=== PATIENT | male | born 1995 | race American Indian/Alaskan Native ===

== ENCOUNTER 2019-03-16 05:20 | Emergency (ER) | payer SELFPAY ==
[2019-03-16] MEDS ORDERED: NARCAN 2 MG/2 ML IV ONE (05:46)
[2019-03-16 05:54] LABS: Basophils # (Auto) 0.1 K/mm3 (0.0-0.1); Basophils % (Auto) 1.3 % (0.0-1.8); Eosinophils % (Auto) 0.5 % (0.0-4.3); Hemoglobin 13.8 gm/dl (11.8-15.2); Lymphocytes # (Auto) 2.5 K/mm3 (1.2-5.4); Lymphocytes % (Auto) 41.3 % (13.4-35.0); Mean Corpuscular HGB Conc 34 % (32-34); Mean Corpuscular Volume 84 fl (84-94); Monocytes # (Auto) 0.3 K/mm3 (0.0-0.8); Monocytes % (Auto) 5.4 % (0.0-7.3); Platelet Count 200 K/mm3 (140-440); Red Blood Count 4.76 M/mm3 (3.65-5.03)
--- NOTE | 2019-03-16 06:01 | XRay Report ---
CHEST 1 VIEW INDICATION: Chest Pain. COMPARISON: None. FINDINGS: Support devices: None. Heart: Within normal limits. Lungs/Pleura: No acute air space or interstitial disease. Additional findings: None. IMPRESSION: No acute abnormality. Signer Name: Jay Cleaning MD Signed: 03/16/2019 5:57 AM Workstation Name: [id number]
[2019-03-16 06:18] LABS: Alanine Aminotransferase 39 units/L (7-56); Albumin 4.1 g/dL (3.9-5); BUN/Creatinine Ratio 9; Blood Urea Nitrogen 10 mg/dL (9-20); Calcium 9.3 mg/dL (8.4-10.2); Hemolysis Index 3
--- NOTE | 2019-03-16 06:54 | Emergency Department Report ---
ED General Adult HPI - General Chief complaint: Chest Pain Stated complaint: DRUG ABUSE Time Seen by Provider: 03/16/19 05:58 Source: EMS (EMS documentation not available at the time of chart dictation), RN notes reviewed Mode of arrival: Stretcher Limitations: Altered Mental Status, Other (the patient is intoxicated.) - History of Present Illness Initial comments: This is a 23-year-old gentleman. This patient is not known to this provider previously. As per documentation, reportedly has a past medical history of anxiety, and atrial fibrillation. The patient is currently sleepy and intoxicated. He does not answer open-ended or close and it questions. History at this point in time is obtained from triage nursing documentation. EMS documentation is not available at this time. Reportedly, the patient was found lying in a parking lot, and reported chest pain after starting cocaine, consuming alcohol, and consuming hydrocodone tablets. There is no documentation of suicidality, and reportedly, the patient stated that he wants to get high. We do not know who contacted emergency medical services. The patient is sleepy, arousable, but not able to answer questions. There is no additional history at this time. -: unknown Radiation: other Quality: other Consistency: other Improves with: other Worsens with: other Associated Symptoms: other - Related Data Previous Rx's Medication Instructions Recorded Last Taken Type Naloxone HCl [Narcan Nasal [place]] 4 mg NS Q1HR PRN #1 spray 03/16/19 Unknown Rx Allergies Allergy/AdvReac Type Severity Reaction Status Date / Time No Known Allergies Allergy Unverified 03/16/19 05:36 ED Review of Systems ROS: Stated complaint: DRUG ABUSE Other details as noted in HPI Comment: Unobtainable due to pts medical conditions ED Past Medical Hx - Past Medical History Previous Medical History?: Yes Hx Psychiatric Treatment: Yes (anxiety) Additional medical history: A-fib - Social History Smoking Status: Current Every Day Smoker Substance Use Type: None, Cocaine - Medications Home Medications: Home Medications Medication Instructions Recorded Confirmed Last Taken Type Naloxone HCl [Narcan Nasal [place]] 4 mg NS Q1HR PRN #1 spray 03/16/19 Unknown Rx ED Physical Exam - General Limitations: Altered Mental Status General appearance: in no apparent distress, appears intoxicated - Head Head exam: Present: atraumatic, normocephalic - Eye Eye exam: Present: normal appearance, PERRL, EOMI - ENT ENT exam: Present: normal exam, normal orophraynx, mucous membranes moist, normal external ear exam - Neck Neck exam: Present: normal inspection, full ROM. Absent: tenderness, meningismus - Respiratory Respiratory exam: Present: normal lung sounds bilaterally. Absent: respiratory distress - Cardiovascular Cardiovascular Exam: Present: regular rate, normal rhythm, normal heart sounds. Absent: bradycardia, tachycardia, irregular rhythm, systolic murmur, diastolic murmur, rubs, gallop - GI/Abdominal GI/Abdominal exam: Present: soft. Absent: distended, tenderness, guarding, rebound, rigid, pulsatile mass - Rectal Rectal exam: Present: deferred - Extremities Exam Extremities exam: Present: normal inspection, full ROM (passive range of motion is intact for the bilateral upper and lower extremities. Patient noted to be moving 4 extremities spontaneously without difficulty.), other (2+ pulses noted in the bilateral upper, lower extremities. There is no long bony tenderness. The pelvis is stable. Muscular compartments are soft.). Absent: pedal edema, joint swelling, calf tenderness - Back Exam Back exam: Present: normal inspection. Absent: tenderness, CVA tenderness (L), paraspinal tenderness, vertebral tenderness - Neurological Exam Neurological exam: Present: altered (patient appears to be intoxicated), other (there is no facial droop. Moving 4 extremities spontaneously. Detailed neurologic examination not possible secondary to intoxication and altered mental status) - Psychiatric Psychiatric exam: Absent: agitated - Skin Skin exam: Present: warm, dry, intact, normal color. Absent: rash ED Course Vital Signs 03/16/19 03/16/19 03/16/19 05:33 05:44 06:35 Temperature 97.7 F Pulse Rate 82 47 L Respiratory 16 16 17 Rate Blood Pressure 124/67 109/59 O2 Sat by Pulse 99 97 Oximetry 03/16/19 03/16/19 03/16/19 06:46 07:11 07:15 Temperature Pulse Rate 69 71 70 Respiratory 17 20 17 Rate Blood Pressure 109/59 O2 Sat by Pulse 96 96 96 Oximetry 03/16/19 03/16/19 03/16/19 07:31 08:00 08:31 Temperature Pulse Rate 75 57 L Respiratory 17 18 Rate Blood Pressure 97/45 109/57 110/66 O2 Sat by Pulse 96 97 97 Oximetry - Reevaluation(s) Reevaluation #1: 03/16/19 06:53 Differential diagnosis, including but not limited to: Polysubstance abuse, int oxication, intracranial injury, cervical spine injury Assessment and plan: 23-year-old male, with reported recreational polysubstance ingestion. The patient is afebrile with reassuring vital signs. His physical exam is unremarkable at this time, with the exception of intoxicated mental status. He will be placed on an ER hold. CT scan of the brain and cervical spine have been ordered. Appropriate screening laboratory studies ordered. We will observe the patient on a desk monitor, and observe for clinical sobriety. Once he is sober, we will obtain additional history. Reevaluation #2: 03/16/19 09:48 CT scan of the brain, cervical spine negative for acute somatic disease. Patient moving his neck back and forth without difficulty, and has no midline cervical spine tenderness. Sensation is intact to light touch and 4, cheese. Therefore, do not have high suspicion for cervical spine injury, and I think that an occult cervical spine injury is very unlikely at this point in time. The patient is now speaking on the phone, trying to get in touch with his mother to arrange pickup. He does not endorse any complaints to myself or to nursing staff. ED Medical Decision Making - Lab Data Result diagrams: 03/16/19 05:44 03/16/19 05:44 Vital Signs 03/16/19 03/16/19 05:33 05:44 Temperature 97.7 F Pulse Rate 82 Respiratory 16 16 Rate Blood Pressure 124/67 O2 Sat by Pulse 99 Oximetry Lab Results 03/16/19 03/16/19 03/16/19 Range/Units 05:44 05:44 05:44 WBC 6.0 (4.5-11.0) K/mm3 RBC 4.76 (3.65-5.03) M/mm3 Hgb 13.8 (11.8-15.2) gm/dl Hct 40.0 (35.5-45.6) % MCV 84 (84-94) fl MCH 29 (28-32) pg MCHC 34 (32-34) % RDW 14.0 (13.2-15.2) % Plt Count 200 (140-440) K/mm3 Lymph % (Auto) 41.3 H (13.4-35.0) % [place] % (Auto) 5.4 (0.0-7.3) % Eos % (Auto) 0.5 (0.0-4.3) % Baso % (Auto) 1.3 (0.0-1.8) % Lymph # 2.5 (1.2-5.4) K/mm3 [place] # 0.3 (0.0-0.8) K/mm3 Eos # 0.0 (0.0-0.4) K/mm3 Baso # 0.1 (0.0-0.1) K/mm3 Seg Neutrophils % 51.5 (40.0-70.0) % Seg Neutrophils # 3.1 (1.8-7.7) K/mm3 Sodium 142 (137-145) mmol/L Potassium 3.7 (3.6-5.0) mmol/L Chloride 102.7 (98-107) mmol/L Carbon Dioxide 26 (22-30) mmol/L Anion Gap 17 mmol/L BUN 10 (9-20) mg/dL Creatinine 1.1 (0.8-1.5) mg/dL Estimated GFR > 60 ml/min BUN/Creatinine Ratio 9 % Glucose 87 (75-100) mg/dL Calcium 9.3 (8.4-10.2) mg/dL Total Bilirubin 0.40 (0.1-1.2) mg/dL AST 29 (5-40) units/L ALT 39 (7-56) units/L Alkaline Phosphatase 61 (35-129) units/L Troponin T < 0.010 (0.00-0.029) ng/mL Total Protein 6.9 (6.3-8.2) g/dL Albumin 4.1 (3.9-5) g/dL Albumin/Globulin Ratio 1.5 % Plasma/Serum Alcohol 0.12 H (0-0.07) % - EKG Data -: EKG Interpreted by Fl EKG shows normal: sinus rhythm Rate: normal - EKG Data When compared to previous EKG there are: previous EKG unavailable 03/16/19 06:54 This is a normal sinus rhythm, normal axis, QTC 435 ms, high left ventricular voltage, there is motion artifact, there is no prior EKG available for comparison, the EKG is not consistent with ST elevation myocardial infarction. - Radiology Data Radiology results: pending, report reviewed, image reviewed Print Report Referring Physician: FAVIOLA RESENDEZ Patient Name: HENRIQUE DIANA Date of : 1995 Sex: Male Report Date: 2019-03-16 Report Status: Finalized Findings [facility] [address] [place] [address] XRay Report Signed Patient: HENRIQUE DIANA MR#: [id number] : 1995 Acct:[id number] Age/Sex: 23 / M ADM Date: 03/16/19 Loc: ED Attending Dr: Ordering Physician: FAVIOLA RESENDEZ MD Date of Service: 03/16/19 Procedure(s): XR chest 1V ap Accession Number(s): [id number] cc: FAVIOLA RESENDEZ MD Fluoro Time In Minutes: CHEST 1 VIEW INDICATION: Chest Pain. COMPARISON: None. FINDINGS: Support devices: None. Heart: Within normal limits. Lungs/Pleura: No acute air space or interstitial disease. Additional findings: None. IMPRESSION: No acute abnormality. Signer Name: Jay Cleaning MD Signed: 03/16/2019 5:57 AM Workstation Name: [id number] Transcribed By: ES Dictated By: Jay Cleaning MD Electronically Authenticated By: Jay Cleaning MD Signed Date/Time: 03/16/19 0557 Critical care attestation.: If time is entered above; I have spent that time in minutes in the direct care of this critically ill patient, excluding procedure time. ED Disposition Clinical Impression: Alcohol intoxication, Polysubstance abuse Disposition: DC-01 TO HOME OR SELFCARE Is pt being admited?: No Does the pt Need Aspirin: No Condition: Good Instructions: Polysubstance Abuse (ED) Additional Instructions: I recommend the patient discontinue or limit alcohol consumption in the future. Recommend the patient does not combine alcohol with prescription drugs or recreational drugs. Combination of alcohol with multiple drugs may cause respir atory depression, , disability, paralysis, loss of quality of life. Recommend patient not drive or operate motor vehicles until cleared to do so by a primary care doctor. Recommend follow-up with the primary care doctor within the next week. Return to the emergency room right away projectile vomiting, change in mental status, confusion, inability to tolerate liquid feeds, new, worsening or different symptoms not present on the initial emergency room evaluation. [place] Narcan medication as needed/directed for opioid overdose, including change in mental status, respiratory depression Referrals: PRIMARY CARE, [Primary Care Provider] - 3-5 Days [facility] [Provider Group] - 3-[address] [facility] [Provider Group] - 3-5 Days
[2019-03-16] MEDS ORDERED: ATIVAN IM PRN (06:57)
[2019-03-16] MEDS ORDERED: HALDOL IM PRN (06:57)
--- NOTE | 2019-03-16 09:03 | Cat Scan Report ---
CT head without contrast INDICATION : intox found down ams. TECHNIQUE: Axial imaging performed from the skull apex through the skull base without the use of con trast. All CT scans at this location are performed using CT dose reduction for ALARA by means of aut omated exposure control. COMPARISON: None FINDINGS: Parenchyma: No acute intracranial hemorrhage or parenchymal abnormality. Ventricles: Ventricles are normal in size and appear symmetric. Soft tissues: Soft tissues including the orbits appear normal. Bones: No acute osseous abnormality. Sinuses: Sinuses and mastoid air cells are clear. IMPRESSION: No acute abnormality. Signer Name: Mika Milian MD Signed: 03/16/2019 8:59 AM Workstation Name: [id number]
[2019-03-16 09:04] LABS: Amphetamine Screen,Urine PRESUMPTIVE NEGATIVE; Benzodiazepines Screen,Urine PRESUMPTIVE NEGATIVE; Methadone Screen,Urine PRESUMPTIVE NEGATIVE; Opiate Screen,Urine PRESUMPTIVE NEGATIVE
--- NOTE | 2019-03-16 09:06 | Cat Scan Report ---
CT cervical spine spine without contrast INDICATION: intox found down ams. TECHNIQUE: Axial imaging performed through the cervical spine without the use of contrast. Sagittal and coronal reconstructed images were also reviewed. All CT scans at this location are performed us ing CT dose reduction for ALARA by means of automated exposure control. COMPARISON: None FINDINGS: The images are pixelated which limits the exam. Alignment: Spinal alignment is normal. Bones: There is no gross acute osseous abnormality. Mild multilevel discogenic DJD is present. Soft tissues: No acute or significant incidental soft tissue abnormality. IMPRESSION: No gross acute abnormality on this limited pixelated exam. Signer Name: Mika Milian MD Signed: 03/16/2019 9:02 AM Workstation Name: [id number]
[2019-03-16 09:18] LABS: Cannabinoid Screen,Urine PRESUMPTIVE POSITIVE; Cocaine Screen,Urine PRESUMPTIVE POSITIVE
[2019-03-16 11:38] VITALS: BP 120/76
== END 2019-03-16 11:38 | disposition home or self-care (01) ==
LOC: ED 05:20
DX: F10.129 Alcohol abuse with intoxication, unspecified (principal); F41.9 Anxiety disorder, unspecified; R41.82 Altered mental status, unspecified; I48.91 Unspecified atrial fibrillation; F17.200 Nicotine dependence, unspecified, uncomplicated; F14.10 Cocaine abuse, uncomplicated; F19.10 Other psychoactive substance abuse, uncomplicated
CPT/HCPCS: 36415; 70450; 71045; 72125; 80053; 80307; 80320; 82550; 83735; 84484; 85025; 93005; 93010; G0480